=== PATIENT | female | born 1965 | race Caucasian/White ===

== ENCOUNTER 2025-08-17 14:20 | Emergency (ER) | payer OTHER ==
[~2025-08-17] VITALS: Ht 160 cm; Wt 81.6 kg
[2025-08-17 14:46] VITALS: BP 127/86; TEMP 98
[2025-08-17 15:54] VITALS: O2SAT 99
== END 2025-08-17 15:54 | disposition home or self-care (01) ==
LOC: ER 14:40
DX: M79.662 Pain in left lower leg (principal); Z96.642 Presence of left artificial hip joint
CPT/HCPCS: 93971-TC